=== PATIENT | female | born 1995 | race Two or more races ===

== ENCOUNTER → 2017-05-16 | Emergency (ER) | payer OTHER ==
[~2017-05-16] VITALS: Ht 162.6 cm; Wt 65.8 kg
[~2017-05-16] MED LIST: LORAZEPAM INJ 2 MG/ML VIAL IV ONE; LORAZEPAM INJ 2 MG/ML VIAL ONE; OLANZAPINE 10 MG VIAL IM ONE; WATER FOR INJECTION,STERILE 10 ML ONE
[2017-05-16 17:22] VITALS: BP 134/98
--- NOTE | 2017-05-16 17:26 | NUR ---
THE PATIENT WAS [facility] AND [employer] FOR CLEARANCE - THE PATIENT WAS COUGHT SHOPLIFTING AND WHILE BEING BOOKED -SHE THEN "ACTED BIZAARE ". ACCU CHECK - WNL VITAL SIGNS - WNL
[2017-05-16 18:30] LABS: BASOPHILS % (AUTO) 0.6 % (0.0-2.0); EOSINOPHILS # (AUTO) 0.2 /CMM (0.0-0.7); EOSINOPHILS % (AUTO) 2.6 % (0.0-6.0); HEMATOCRIT 34 % (33-45); HEMOGLOBIN 11.7 g/dL (11.5-14.8); LYMPHOCYTES # (AUTO) 1.9 /CMM (0.8-4.8); LYMPHOCYTES % (AUTO) 23.5 % (20.0-44.0); MEAN CORPUSCULAR HEMOGLOBIN 29 PG (26.0-33.0); MEAN CORPUSCULAR HGB CONC 35 g/dl (31.0-36.0); MEAN CORPUSCULAR VOLUME 85 fL (82-100); MONOCYTES # (AUTO) 0.7 /CMM (0.1-1.30); MONOCYTES % (AUTO) 9.2 % (2.0-12.0); NEUTROPHILS # (AUTO) 5.1 /CMM (1.8-8.9); NEUTROPHILS % (AUTO) 64.1 % (43.0-81.0); PLATELET COUNT (AUTO) 229 /CMM (150-450); RDW COEFFICIENT OF VARIATION 12.7 (11.5-15.0); RED BLOOD CELL COUNT(AUTO) 3.97 MIL/uL (4.0-5.2); WHITE BLOOD COUNT (AUTO) 7.9 K/uL (4.3-11.0)
[2017-05-16 18:32] LABS: CALCIUM, SERUM 8.4 mg/dL (8.5-10.1); CARBON DIOXIDE 24 mmol/L (21-32); CHLORIDE 109 mmol/L (98-107); CREATININE 0.8 mg/dL (0.6-1.3); GLUCOSE 97 mg/dL (74-106); POTASSIUM 3.4 mmol/L (3.5-5.1); SODIUM SERUM 141 mmol/L (136-145); UREA NITROGEN, BLOOD 15 mg/dL (7-18)
[2017-05-16 18:38] LABS: ALANINE AMINOTRANSFERASE 22 U/L (12-78); ALBUMIN 3.5 g/dL (3.4-5.0); ALCOHOL, BLOOD < 3 mg/dL (0-0); ALKALINE PHOSPHATASE 98 U/L (46-116); ASPARTATE AMINOTRANSFERASE 28 U/L (15-37); BILIRUBIN,DIRECT 0.1 mg/dL (0.0-0.2); BILIRUBIN,TOTAL 0.4 mg/dL (0.2-1.0); TOTAL PROTEIN, SERUM 6.4 g/dL (6.4-8.2)
[2017-05-16 18:39] LABS: ACETAMINOPHEN < 10 ug/ml (10-30); SALICYLATE 1.3 mg/dL (2.8-20.0)
--- NOTE | 2017-05-16 22:52 | NUR ---
PT TO CT VIA PATY
--- NOTE | 2017-05-17 00:22 | NUR ---
PT MEDICATED ORDERED.
--- NOTE | 2017-05-17 06:27 | NUR ---
PT SLEEPING IN [facility]. NO SIGNS OF DISTRESS NOTED PT VITAL SIGNS STABLE. WILL CONT TO MONITOR PT.
[2017-05-17 07:13] LABS: APPEARANCE,URINE SL CLOUDY (CLEAR); BILIRUBIN,URINE NEGATIVE (NEGATIVE); BLOOD, URINE NEGATIVE Ery/uL (NEGATIVE); COLOR,URINE YELLOW (YELLOW); KETONES,URINE NEGATIVE (NEGATIVE); LEUKOCYTE ESTERASE ,URINE NEGATIVE (NEGATIVE); NITRITE, URINE NEGATIVE (NEGATIVE); PH,URINE 5.5 (5.0-8.0); PROTEIN,URINE NEGATIVE (NEGATIVE); UGLUCOSE NEGATIVE (NEGATIVE); UROBILINOGEN,URINE 0.2 EU/dL (0.2)
== END | disposition home or self-care (01) ==
LOC: ER 17:21
DX: F19.159 Other psychoactive substance abuse with psychoactive substance-induced psychotic disorder, unspecified (principal); F15.10 Other stimulant abuse, uncomplicated; R51 Headache; Z59.0 Homelessness
CPT/HCPCS: 36415; 70450-TC; 80048-TC; 80076-TC; 80305; 81000-TC; 84703-TC; 85025-TC; A4606; G0480; J2060; J3490; Z7610

== ENCOUNTER 2017-09-21 09:23 | Emergency (ER) | payer SELFPAY ==
[~2017-09-21] VITALS: Ht 167.6 cm; Wt 76.2 kg
[2017-09-21 09:58] LABS: CARBON DIOXIDE 27 mmol/L (21-32); CHLORIDE 106 mmol/L (98-107); CREATININE 0.7 mg/dL (0.6-1.3); GLUCOSE 86 mg/dL (74-106); POTASSIUM 3.9 mmol/L (3.5-5.1); SODIUM SERUM 139 mmol/L (136-145); UREA NITROGEN, BLOOD 26 mg/dL (7-18)
[2017-09-21 09:59] LABS: BASOPHILS % (AUTO) 0.5 % (0.0-2.0); EOSINOPHILS # (AUTO) 0.2 /CMM (0.0-0.7); EOSINOPHILS % (AUTO) 3.9 % (0.0-6.0); HEMATOCRIT 36 % (33-45); HEMOGLOBIN 12.1 g/dL (11.5-14.8); LYMPHOCYTES # (AUTO) 2.4 /CMM (0.8-4.8); MEAN CORPUSCULAR HEMOGLOBIN 30 PG (26.0-33.0); MEAN CORPUSCULAR HGB CONC 34 g/dl (31.0-36.0); MEAN CORPUSCULAR VOLUME 89 fL (82-100); MONOCYTES # (AUTO) 0.6 /CMM (0.1-1.30); MONOCYTES % (AUTO) 10.4 % (2.0-12.0); NEUTROPHILS # (AUTO) 2.7 /CMM (1.8-8.9); NEUTROPHILS % (AUTO) 45.2 % (43.0-81.0); PLATELET COUNT (AUTO) 265 /CMM (150-450); RDW COEFFICIENT OF VARIATION 14.4 (11.5-15.0); RED BLOOD CELL COUNT(AUTO) 4.06 MIL/uL (4.0-5.2)
[2017-09-21 10:03] LABS: ACETAMINOPHEN 0 ug/ml (10-30); ALANINE AMINOTRANSFERASE 36 U/L (12-78); ALBUMIN 3.4 g/dL (3.4-5.0); ALCOHOL, BLOOD < 3 mg/dL (0-0); ALKALINE PHOSPHATASE 104 U/L (46-116); ASPARTATE AMINOTRANSFERASE 36 U/L (15-37); BILIRUBIN,DIRECT 0.1 mg/dL (0.0-0.2); BILIRUBIN,TOTAL 0.2 mg/dL (0.2-1.0); SALICYLATE 2.2 mg/dL (2.8-20.0); TOTAL PROTEIN, SERUM 6.5 g/dL (6.4-8.2)
--- NOTE | 2017-09-21 10:04 | NUR ---
STRAIGHT CATH PERFORMED FOR URINE SAMPLE ORDERED BY DR WEBSTER. 100 CC DARK YELLOW URINE OUPUT NOTED
[2017-09-21 10:09] LABS: APPEARANCE,URINE Cloudy (CLEAR); BILIRUBIN,URINE Negative (NEGATIVE); BLOOD, URINE Large Ery/uL (NEGATIVE); COLOR,URINE Yellow (YELLOW); KETONES,URINE Negative (NEGATIVE); LEUKOCYTE ESTERASE ,URINE Negative (NEGATIVE); NITRITE, URINE Negative (NEGATIVE); PH,URINE 5.5 (5.0-8.0); PROTEIN,URINE 30 mg/dl (NEGATIVE); UGLUCOSE Negative (NEGATIVE); UROBILINOGEN,URINE 0.2 EU/dL (0.2)
[2017-09-21 10:22] LABS: BACTERIA,URINE 1+ /HPF (None Seen)
[2017-09-21 10:23] LABS: SQUAMOUS EPITHELIAL CELL,UR Few /HPF (None Seen)
--- NOTE | 2017-09-21 11:00 | NUR ---
ASSUME PT CARE. PER REPORT, PT WAS RUNNING THROUGH TRAFFIC, ALTERED. WAS GIVEN VERSED. PT ON MONITOR. STABLE VITALS. WILL CONT TO MONITOR.
--- NOTE | 2017-09-21 13:05 | NUR ---
PT IS SLEEPING. ON MONITOR. STABLE VITALS. WILL CONTINUE TO MONITOR.
--- NOTE | 2017-09-21 19:40 | NUR ---
PROVIDED W/ FOOD AND ORAL HYDRATION. PT DENIES SI/HI. WANTS TO GO HOME. AMBULATORY W/ STEADY GAIT. D/C IN STABLE CONDITION.
[2017-09-21 19:41] VITALS: BP 121/84
== END 2017-09-21 19:42 | disposition home or self-care (01) ==
LOC: ER 09:24
DX: F15.10 Other stimulant abuse, uncomplicated (principal); F12.10 Cannabis abuse, uncomplicated; R79.89 Other specified abnormal findings of blood chemistry; R82.99 Other abnormal findings in urine; F10.10 Alcohol abuse, uncomplicated; Z59.0 Homelessness
CPT/HCPCS: 36415; 80048-TC; 80076-TC; 80305; 81000-TC; 85025-TC; 87086-TC; A4606; G0480; Z7610